=== PATIENT | male | born 1970 | race African-American/Black ===

== ENCOUNTER 2019-05-19 11:13 | Inpatient (IN) | payer OTHER ==
[2019-05-19 15:35] VITALS: BMI 23.1
--- NOTE | 2019-05-19 17:14 | HP ---
CIWA Score Nausea/Vomitin-No Nausea/No Vomiting Muscle Tremors: 3 Anxiety: 2 Agitation: 1-Slight > Activity Paroxysmal Sweats: 2 Orientation: 0-Oriented Tacttile Disturbances: 3-Moderate Itch/Numb/Burn Auditory Disturbances: 0-None Visual Disturbances: 0-None Headache: 1-Very Mild CIWA-Ar Total Score: 12 - Admission Criteria OASAS Guidelines: Admission for Medically Managed Detox: Requires at least one of the followin. CIWA greater than 12 2. Seizures within the past 24 hours 3. Delirium tremens within the past 24 hours 4. Hallucinations within the past 24 hours 5. Acute intervention needed for co occurring medical disorder 6. Acute intervention needed for co occurring psychiatric disorder 7. Severe withdrawal that cannot be handled at a lower level of care (continued vomiting, continued diarrhea, abnormal vital signs) requiring intravenous medication and/or fluids 8. Patient presents the following: CIWA greater than 12 Admission Criteria Met: Admission criteria met Admission ROS [facility] Chief Complaint: alcohol detox Allergies/Adverse Reactions: Allergies Allergy/AdvReac Type Severity Reaction Status Date / Time No Known Allergies Allergy Verified 05/19/19 15:28 History of Present Illness: Patient is a 48 yo AA, male, homeless, with hx of opioid, use disorder, alcohol use disorder and cocaine use disorder, is here seeking inpatient alcohol detox d/t withdrawal sx. patient currently on MAT Bup 8 mg TID but reports only takes it 8 mg qd. Patient denies hx of seizures or blackouts. Denies any significant medical hx . Patient reports recent relapse dx murder of his son two weeks ago, denies SI/HI at this time. Patient Name: Gabriel Busby Date: 1970 Address: [address] [place] [address] Sex: Male Rx Written Rx Dispensed Drug Quantity Days Supply Prescriber Name 05/03/2019 05/03/2019 buprenorphine-naloxone 8-2 mg sl film 21 7 Sierra Bowers 04/26/2019 04/26/2019 buprenorphine-naloxone 8-2 mg sl film 21 7 Sierra Bowers 04/19/2019 04/19/2019 buprenorphine-naloxone 8-2 mg sl tablet 21 7 Sierra Bowers 03/29/2019 03/29/2019 buprenorphine-naloxone 8-2 mg sl tablet 21 7 Sierra Bowers 02/24/2019 02/24/2019 buprenorphine-naloxone 8-2 mg sl film 30 15 José Argueta Patient Name: Gabriel Busby Date: 1970 Address: [place] [address] Sex: Male Rx Written Rx Dispensed Drug Quantity Days Supply Prescriber Name 01/05/2019 01/05/2019 chlordiazepoxide 25 mg capsule 24 6 Uday Liu) 07/07/2018 07/07/2018 buprenorphine-naloxone 8-2 mg sl tablet 28 13 Sandra Worthy NP Exam Limitations: No Limitations - Ebola screening Have you traveled outside of the country in the last 21 days: No Have you had contact with anyone from an Ebola affected area: No - Review of Systems Constitutional: Chills, Unintentional Wgt. Loss EENT: reports: Nose Congestion Respiratory: reports: No Symptoms reported Cardiac: reports: No Symptoms Reported GI: reports: Poor Appetite, Poor Fluid Intake : reports: No Symptoms Reported Musculoskeletal: reports: No Symptoms Reported Integumentary: reports: No Symptoms Reported Neuro: reports: No Symptoms reported Endocrine: reports: Increased Thirst Hematology: reports: No Symptoms Reported Psychiatric: reports: Orientated x3, Depressed Other Systems: Reviewed and Negative Patient History - Patient Medical History Hx Anemia: No Hx Asthma: No Hx Chronic Obstructive Pulmonary Disease (COPD): No Hx Cancer: No Hx Cardiac Disorders: No Hx Congestive Heart Failure: No Hx Hypertension: No Hx Hypercholesterolemia: No Hx Pacemaker: No HX Cerebrovascular Accident: No Hx Seizures: No Hx Dementia: No Hx Diabetes: No Hx Gastrointestinal Disorders: No Hx Liver Disease: No Hx Genitourinary Disorders: No Hx Sexually Transmitted Disorders: No Hx Renal Disease (ESRD): No Hx Thyroid Disease: No Hx Human Immunodeficiency Virus (HIV): No (Last tested negative February 2019) Hx Hepatitis C: No Hx Depression: No Hx Suicide Attempt: No (DENIES) Hx Bipolar Disorder: No Hx Schizophrenia: No - Patient Surgical History Past Surgical History: No Hx Neurologic Surgery: No Hx Cataract Extraction: No Hx Cardiac Surgery: No Hx Lung Surgery: No Hx Breast Surgery: No Hx Breast Biopsy: No Hx Abdominal Surgery: No Hx Appendectomy: No Hx Cholecystectomy: No Hx Genitourinary Surgery: No Hx Section: No Hx Orthopedic Surgery: No Anesthesia Reaction: No - PPD History Previous Implant?: No Documented Results: Negative w/proof Date: 06/09/14 Results: 0 MM PPD to be Administered?: Yes - Smoking Cessation Smoking history: Current every day smoker Have you smoked in the past 12 months: No Aproximately how many cigarettes per day: 0 Cigars Per Day: 0 Hx Chewing Tobacco Use: No Initiated information on smoking cessation: Yes 'Breaking Loose' booklet given: 05/19/19 - Substance & Tx. History Hx Alcohol Use: No Hx Substance Use: Yes Substance Use Type: Cocaine, Opiates Hx Substance Use Treatment: Yes (Detox and Rehab February [address] ) - Substances abused Alcohol Substance route: Oral Frequency: Daily Amount used: 2 pints of vodka Age of first use: 18 Date of last use: 05/18/19 Heroin Substance route: Inhalation Frequency: Daily Amount used: 22 bAGS Age of first use: 18 Date of last use: 05/18/19 Admission Physical Exam S - Vital Signs Vital Signs: Vital Signs - 24 hr 05/19/19 15:28 Temperature 97.3 F L Pulse Rate 72 Respiratory 20 Rate Blood Pressure 137/91 - Physical General Appearance: Yes: Disheveled (poor hygiene), Mild Distress, Thin, Tremorous, Sweating, Anxious HEENTM: Yes: EOMI, Hearing grossly Normal, Normal ENT Inspection, Normocephalic , Normal Voice, RISSA, Pharynx Normal, Tm's normal, Other (dry mucous membranes) Respiratory: Yes: Chest Non-Tender, Lungs Clear, Normal Breath Sounds, No Respiratory Distress, No Accessory Muscle Use Neck: Yes: Within Normal Limits Breast: Yes: Breast Exam Deferred Cardiology: Yes: Regular Rhythm, Regular Rate Abdominal: Yes: Normal Bowel Sounds, Non Tender, Flat, Soft Genitourinary: Yes: Within Normal Limits Back: Yes: Normal Inspection Musculoskeletal: Yes: full range of Motion, Gait Steady, Pelvis Stable, Back pain Extremities: Yes: Normal Capillary Refill, Normal Inspection, Normal Range of Motion, Non-Tender Neurological: Yes: employment office clerk II-XII NML intact, Fully Oriented, Alert, Motor Strength 5/5, Normal Response, Depressed Affect Integumentary: Yes: Normal Color, Dry, Warm Lymphatic: Yes: Within Normal Limits - Diagnostic (1) Alcohol dependence with uncomplicated withdrawal Current Visit: Yes Status: Acute (2) Weight decreased Current Visit: Yes Status: Active (3) Nicotine dependence Current Visit: Yes Status: Acute (4) Cocaine dependence, uncomplicated Current Visit: Yes Status: Acute (5) Opioid dependence on agonist therapy Current Visit: Yes Status: Chronic Cleared for Admission [facility] - Detox or Rehab [facility] Level of Care: Medically Managed Detox Regimen/Protocol: Librium Breathalyzer - Breathalyzer Breathalyzer: 0 Urine Drug Screen - Test Device Lot number: [id number] Expiration date: 01/20/21 - Control Is test valid?: Yes - Results Drug screen NEGATIVE: No Urine drug screen results: CLAIRE-Cocaine, MOP-Opiates, BUP-Suboxone Inpatient Rehab Admission - Rehab Decision to Admit Inpatient rehab admission?: No
[2019-05-19] MEDS ORDERED: METHOCARBAMOL 500 MG TABLET PO PRN (17:21)
[2019-05-19] MEDS ORDERED: chlordiazePOXIDE HCL 25 MG CAPSULE PO PRN (17:21)
[2019-05-19] MEDS ORDERED: MENTHOL/PHENOL 1 EACH UD MM PRN (17:21)
[2019-05-19] MEDS ORDERED: BISMUTH SUBSALICYLATE 524 MG/30 ML UD PO PRN (17:21)
[2019-05-19] MEDS ORDERED: hydrOXYzine PAMOATE 25 MG CAPSULE (FP) PO PRN (17:21)
[2019-05-19] MEDS ORDERED: ACETAMINOPHEN 325 MG TABLET (FP) PO PRN ×2 (17:21)
[2019-05-19] MEDS ORDERED: MAGNESIUM CITRATE 300 ML BOTTLE PO PRN (17:21)
[2019-05-19] MEDS ORDERED: MAGNESIUM HYDROX 2400MG/30ML ORAL SUSPENSION 30 ML CUP PO PRN (17:21)
[2019-05-19] MEDS ORDERED: IBUPROFEN 400 MG TABLET (FP) PO PRN (17:21)
[2019-05-19] MEDS ORDERED: MAG HYDROX/AL HYDROX/SIMETH 30 ML UNIT-DOSE CUP PO PRN (17:21)
[2019-05-19] MEDS ORDERED: MELATONIN 5 MG TABLETS PO PRN (17:21)
[2019-05-19] MEDS: BUPRENORPHINE/NALOXONE 8 MG/2 MG FILM PACKET SL SCH (18:24)
[2019-05-19] MEDS: chlordiazePOXIDE HCL 25 MG CAPSULE PO SCH (22:37)
[2019-05-19] MEDS: THIAMINE HCL 100 MG TABLET (FP) PO SCH (22:37)
[2019-05-20] MEDS: chlordiazePOXIDE HCL 25 MG CAPSULE PO SCH ×4 (06:07→22:56)
[2019-05-20] MEDS: PRENATAL VITAMINS W/ FOLIC ACID TABLET (FP) PO SCH (10:22)
[2019-05-20] MEDS: BUPRENORPHINE/NALOXONE 8 MG/2 MG FILM PACKET SL SCH (10:22)
[2019-05-20 10:28] LABS: ALBUMIN 2.9 g/dl (3.4-5.0); BILIRUBIN,TOTAL 0.3 mg/dL (0.2-1); BLOOD UREA NITROGEN 12.1 mg/dL (7-18); CALCIUM 8.7 mg/dL (8.5-10.1); CREATININE 0.9 mg/dL (0.55-1.3); HEMATOCRIT 39.8 % (35.4-49); HEMOGLOBIN 13.5 GM/dL (11.7-16.9); MCHC 33.8 g/dl (32.0-35.9); MEAN CELL VOLUME 91.8 fl (80-96); MEAN PLT VOLUME 8.9 fl (7.5-11.1); PLATELET COUNT 298 K/MM3 (134-434); POTASSIUM 3.9 mmol/L (3.5-5.1); RBC 4.34 M/mm3 (4.00-5.60); RDW 13.9 % (11.9-15.9); TOT PROT 6.1 g/dl (6.4-8.2); WHITE BLOOD COUNT 5.1 K/mm3 (4.0-10.0)
--- NOTE | 2019-05-20 17:25 | PN ---
S CIWA - CIWA Score Nausea/Vomitin-No Nausea/No Vomiting Muscle Tremors: 3 Anxiety: 3 Agitation: 2 Paroxysmal Sweats: 3 Orientation: 4Disoriented Place/Person Tacttile Disturbances: 0-None Auditory Disturbances: 0-None Visual Disturbances: 0-None Headache: 0-None Present CIWA-Ar Total Score: 15 BHS Progress Note (SOAP) Subjective: Tremors, Anxious, Sweating. Objective: PATIENT A & O X 1 (UNCERTAIN ABOUT CURRENT DAY / DATE AND ABOUT CURRENT LOCATION ). IN NO ACUTE DISTRESS. 05/20/19 17:24 Vital Signs Temperature 97.1 F L 05/20/19 17:16 Pulse Rate 79 05/20/19 17:16 Respiratory Rate 18 05/20/19 17:16 Blood Pressure 117/71 05/20/19 17:16 O2 Sat by Pulse Oximetry (%) Laboratory Tests 05/20/19 05/20/19 05/20/19 07:40 07:40 07:40 WBC 5.1 RBC 4.34 Hgb 13.5 Hct 39.8 MCV 91.8 MCH 31.0 MCHC 33.8 RDW 13.9 Plt Count 298 MPV 8.9 Sodium 143 Potassium 3.9 Chloride 108 H Carbon Dioxide 28 Anion Gap 7 L BUN 12.1 Creatinine 0.9 Est GFR (CKD-EPI)AfAm 115.83 Est GFR (CKD-EPI)NonAf 99.94 Random Glucose 86 Calcium 8.7 Total Bilirubin 0.3 AST 12 L ALT 13 Alkaline Phosphatase 72 Total Protein 6.1 L Albumin 2.9 L RPR Titer Nonreactive LABS NOTED. Assessment: 05/20/19 17:25 WITHDRAWAL SYMPTOMS. Plan: CONTINUE DETOX.
[2019-05-20] MEDS: THIAMINE HCL 100 MG TABLET (FP) PO SCH (22:56)
[2019-05-21] MEDS: chlordiazePOXIDE HCL 25 MG CAPSULE PO SCH ×4 (05:33→22:48)
[2019-05-21] MEDS: PRENATAL VITAMINS W/ FOLIC ACID TABLET (FP) PO SCH (10:19)
[2019-05-21] MEDS: BUPRENORPHINE/NALOXONE 8 MG/2 MG FILM PACKET SL SCH (10:19)
--- NOTE | 2019-05-21 12:23 | PN ---
[facility] CIWA - CIWA Score Nausea/Vomitin-Mild Nausea/No Vomiting Muscle Tremors: 4-Moderate,w/Arms Extend Anxiety: 3 Agitation: 2 Paroxysmal Sweats: 1-Minimal Palms Moist Orientation: 0-Oriented Tacttile Disturbances: 0-None Auditory Disturbances: 0-None Visual Disturbances: 0-None Headache: 1-Very Mild CIWA-Ar Total Score: 12 S Progress Note (SOAP) Subjective: doing well with librium detox regimen ate breakfast received suboxone today feeling better Objective: 05/21/19 12:22 Vital Signs Temperature 96.7 F L 05/21/19 09:48 Pulse Rate 83 05/21/19 09:48 Respiratory Rate 18 05/21/19 09:48 Blood Pressure 126/83 05/21/19 09:48 O2 Sat by Pulse Oximetry (%) Laboratory Last Values WBC 5.1 K/mm3 (4.0-10.0) 05/20/19 07:40 RBC 4.34 M/mm3 (4.00-5.60) 05/20/19 07:40 Hgb 13.5 GM/dL (11.7-16.9) 05/20/19 07:40 Hct 39.8 % (35.4-49) 05/20/19 07:40 MCV 91.8 fl (80-96) 05/20/19 07:40 MCH 31.0 pg (25.7-33.7) 05/20/19 07:40 MCHC 33.8 g/dl (32.0-35.9) 05/20/19 07:40 RDW 13.9 % (11.9-15.9) 05/20/19 07:40 Plt Count 298 K/MM3 (134-434) 05/20/19 07:40 MPV 8.9 fl (7.5-11.1) 05/20/19 07:40 Sodium 143 mmol/L (136-145) 05/20/19 07:40 Potassium 3.9 mmol/L (3.5-5.1) 05/20/19 07:40 Chloride 108 mmol/L (98-107) H 05/20/19 07:40 Carbon Dioxide 28 mmol/L (21-32) 05/20/19 07:40 Anion Gap 7 MMOL/L (8-16) L 05/20/19 07:40 BUN 12.1 mg/dL (7-18) 05/20/19 07:40 Creatinine 0.9 mg/dL (0.55-1.3) 05/20/19 07:40 Est GFR (CKD-EPI)AfAm 115.83 05/20/19 07:40 Est GFR (CKD-EPI)NonAf 99.94 05/20/19 07:40 Random Glucose 86 mg/dL (74-106) 05/20/19 07:40 Calcium 8.7 mg/dL (8.5-10.1) 05/20/19 07:40 Total Bilirubin 0.3 mg/dL (0.2-1) 05/20/19 07:40 AST 12 U/L (15-37) L 05/20/19 07:40 ALT 13 U/L (13-61) 05/20/19 07:40 Alkaline Phosphatase 72 U/L (45-117) 05/20/19 07:40 Total Protein 6.1 g/dl (6.4-8.2) L 05/20/19 07:40 Albumin 2.9 g/dl (3.4-5.0) L 05/20/19 07:40 RPR Titer Nonreactive (NONREACTIVE) 05/20/19 07:40 lab noted Assessment: 05/21/19 12:23 alcohol withdrawal sx Plan: continue librium detox regimen
[2019-05-21] MEDS: THIAMINE HCL 100 MG TABLET (FP) PO SCH (22:48)
[2019-05-22] MEDS ORDERED: chlordiazePOXIDE HCL 10 MG CAPSULE PO PRN
[2019-05-22] MEDS: chlordiazePOXIDE HCL 10 MG CAPSULE PO SCH ×4 (06:08→22:50)
[2019-05-22] MEDS: PRENATAL VITAMINS W/ FOLIC ACID TABLET (FP) PO SCH (10:12)
[2019-05-22] MEDS: BUPRENORPHINE/NALOXONE 8 MG/2 MG FILM PACKET SL SCH (10:12)
--- NOTE | 2019-05-22 11:45 | PN ---
[facility] CIWA - CIWA Score Nausea/Vomitin-No Nausea/No Vomiting Muscle Tremors: 2 Anxiety: 2 Agitation: 2 Paroxysmal Sweats: 1-Minimal Palms Moist Orientation: 0-Oriented Tacttile Disturbances: 1-Very Mild Itch/Numbness Auditory Disturbances: 0-None Visual Disturbances: 0-None Headache: 0-None Present CIWA-Ar Total Score: 8 S Progress Note (SOAP) Subjective: doing well with librium detox regimen ate breakfast tolerate food and fluid well received suboxone today Objective: 05/22/19 11:44 Vital Signs Temperature 96.1 F L 05/22/19 09:04 Pulse Rate 64 05/22/19 09:04 Respiratory Rate 18 05/22/19 09:04 Blood Pressure 107/68 05/22/19 09:04 O2 Sat by Pulse Oximetry (%) Laboratory Last Values WBC 5.1 K/mm3 (4.0-10.0) 05/20/19 07:40 RBC 4.34 M/mm3 (4.00-5.60) 05/20/19 07:40 Hgb 13.5 GM/dL (11.7-16.9) 05/20/19 07:40 Hct 39.8 % (35.4-49) 05/20/19 07:40 MCV 91.8 fl (80-96) 05/20/19 07:40 MCH 31.0 pg (25.7-33.7) 05/20/19 07:40 MCHC 33.8 g/dl (32.0-35.9) 05/20/19 07:40 RDW 13.9 % (11.9-15.9) 05/20/19 07:40 Plt Count 298 K/MM3 (134-434) 05/20/19 07:40 MPV 8.9 fl (7.5-11.1) 05/20/19 07:40 Sodium 143 mmol/L (136-145) 05/20/19 07:40 Potassium 3.9 mmol/L (3.5-5.1) 05/20/19 07:40 Chloride 108 mmol/L (98-107) H 05/20/19 07:40 Carbon Dioxide 28 mmol/L (21-32) 05/20/19 07:40 Anion Gap 7 MMOL/L (8-16) L 05/20/19 07:40 BUN 12.1 mg/dL (7-18) 05/20/19 07:40 Creatinine 0.9 mg/dL (0.55-1.3) 05/20/19 07:40 Est GFR (CKD-EPI)AfAm 115.83 05/20/19 07:40 Est GFR (CKD-EPI)NonAf 99.94 05/20/19 07:40 Random Glucose 86 mg/dL (74-106) 05/20/19 07:40 Calcium 8.7 mg/dL (8.5-10.1) 05/20/19 07:40 Total Bilirubin 0.3 mg/dL (0.2-1) 05/20/19 07:40 AST 12 U/L (15-37) L 05/20/19 07:40 ALT 13 U/L (13-61) 05/20/19 07:40 Alkaline Phosphatase 72 U/L (45-117) 05/20/19 07:40 Total Protein 6.1 g/dl (6.4-8.2) L 05/20/19 07:40 Albumin 2.9 g/dl (3.4-5.0) L 05/20/19 07:40 RPR Titer Nonreactive (NONREACTIVE) 05/20/19 07:40 lab noted Assessment: 05/22/19 11:44 alcohol withdrawal sx Plan: continue librium detox regimen
--- NOTE | 2019-05-22 13:28 | EKG ---
Test Reason : Blood Pressure : / mmHG Vent. Rate : 065 BPM Atrial Rate : 065 BPM P-R Int : 170 ms QRS Dur : 084 ms QT Int : 440 ms P-R-T Axes : 060 070 069 degrees QTc Int : 457 ms NORMAL SINUS RHYTHM NORMAL ECG NO PREVIOUS ECGS AVAILABLE Confirmed by CLEMENTE LEE MD ([id number]) on 05/22/2019 1:27:27 PM Referred By: Confirmed By:CLEMENTE LEE MD
[2019-05-22] MEDS: THIAMINE HCL 100 MG TABLET (FP) PO SCH (22:51)
[2019-05-23] MEDS: chlordiazePOXIDE HCL 10 MG CAPSULE PO SCH ×2 (07:45→17:30)
[2019-05-23] MEDS: BUPRENORPHINE/NALOXONE 8 MG/2 MG FILM PACKET SL SCH (10:11)
[2019-05-23] MEDS: PRENATAL VITAMINS W/ FOLIC ACID TABLET (FP) PO SCH (10:12)
--- NOTE | 2019-05-23 16:24 | PN ---
S CIWA - CIWA Score Nausea/Vomitin-No Nausea/No Vomiting Muscle Tremors: None Anxiety: 2 Agitation: 1-Slight > Activity Paroxysmal Sweats: 3 Orientation: 2-Disoriented Date<2 days Tacttile Disturbances: 0-None Auditory Disturbances: 0-None Visual Disturbances: 0-None Headache: 0-None Present CIWA-Ar Total Score: 8 BHS Progress Note (SOAP) Subjective: Sweating, Fatigue. Objective: PATIENT A & O X 2 (UNCERTAIN ABOUT CURRENT DAY / DATE). IN NO ACUTE DISTRESS. 05/23/19 16:23 Vital Signs Temperature 97.3 F L 05/23/19 06:18 Pulse Rate 64 05/23/19 06:18 Respiratory Rate 18 05/23/19 06:18 Blood Pressure 112/68 05/23/19 06:18 O2 Sat by Pulse Oximetry (%) Laboratory Tests 05/20/19 05/20/19 05/20/19 07:40 07:40 07:40 WBC 5.1 RBC 4.34 Hgb 13.5 Hct 39.8 MCV 91.8 MCH 31.0 MCHC 33.8 RDW 13.9 Plt Count 298 MPV 8.9 Sodium 143 Potassium 3.9 Chloride 108 H Carbon Dioxide 28 Anion Gap 7 L BUN 12.1 Creatinine 0.9 Est GFR (CKD-EPI)AfAm 115.83 Est GFR (CKD-EPI)NonAf 99.94 Random Glucose 86 Calcium 8.7 Total Bilirubin 0.3 AST 12 L ALT 13 Alkaline Phosphatase 72 Total Protein 6.1 L Albumin 2.9 L RPR Titer Nonreactive LABS NOTED. Assessment: 05/23/19 16:23 WITHDRAWAL SYMPTOMS. Plan: CONTINUE DETOX. PATIENT SCHEDULED FOR D/C FROM DETOX UNIT TOMORROW.
[2019-05-23 17:18] VITALS: BP 113/74; PULSE 90; TEMP 97.6
[2019-05-23] MEDS: THIAMINE HCL 100 MG TABLET (FP) PO SCH (23:50)
[2019-05-24] MEDS ORDERED: chlordiazePOXIDE HCL 10 MG CAPSULE PO ONE (05:00)
[2019-05-24] MEDS: PRENATAL VITAMINS W/ FOLIC ACID TABLET (FP) PO SCH (09:21)
[2019-05-24] MEDS: BUPRENORPHINE/NALOXONE 8 MG/2 MG FILM PACKET SL SCH (09:21)
--- NOTE | 2019-05-24 21:42 | DS ---
[facility] Detox Discharge Summary Admission Date: 05/19/19 Discharge Date: 05/24/19 - History Present History: Alcohol Dependence, Cocaine Dependence, Opioid Dependence Additional Comments: PATIENT GOING TO [address] ([place], [place]) FOR AFTERCARE. PATIENT WAS DISCHARGED FROM DETOX UNIT IN STABLE MEDICAL CONDITION. Pertinent Past History: Weight Decreased, Nicotine Dependence, History of MAT / Suboxone Maintenance Therapy. - Physical Exam Results Vital Signs: Vital Signs Temperature 97.6 F 05/23/19 17:17 Pulse Rate 90 05/23/19 17:17 Respiratory Rate 18 05/23/19 17:17 Blood Pressure 113/74 05/23/19 17:17 O2 Sat by Pulse Oximetry (%) Pertinent Admission Physical Exam Findings: WITHDRAWAL SYMPTOMS. Laboratory Tests 05/20/19 05/20/19 05/20/19 07:40 07:40 07:40 WBC 5.1 RBC 4.34 Hgb 13.5 Hct 39.8 MCV 91.8 MCH 31.0 MCHC 33.8 RDW 13.9 Plt Count 298 MPV 8.9 Sodium 143 Potassium 3.9 Chloride 108 H Carbon Dioxide 28 Anion Gap 7 L BUN 12.1 Creatinine 0.9 Est GFR (CKD-EPI)AfAm 115.83 Est GFR (CKD-EPI)NonAf 99.94 Random Glucose 86 Calcium 8.7 Total Bilirubin 0.3 AST 12 L ALT 13 Alkaline Phosphatase 72 Total Protein 6.1 L Albumin 2.9 L RPR Titer Nonreactive LABS NOTED. - Treatment Hospital Course: Detox Protocol Followed, Detoxed Safely, Responded well, Discharged Condition Good, Rehab Referral Accepted Patient has Accepted a Rehab Referral to: [address] ([place], [place]). - Medication Discharge Medications: Ambulatory Orders Buprenorphine/Naloxone [Suboxone 8Mg/2Mg Sl Film -] 1 each SL DAILY 05/19/19 - Diagnosis (1) Weight decreased Status: Active (2) Alcohol dependence with uncomplicated withdrawal Status: Acute (3) Cocaine dependence, uncomplicated Status: Acute (4) Nicotine dependence Status: Acute (5) Opioid dependence on agonist therapy Status: Chronic - AMA Did Patient Leave Against Medical Advice: No CIWA Score Nausea/Vomitin-No Nausea/No Vomiting Muscle Tremors: None Anxiety: 2 Agitation: 1-Slight > Activity Paroxysmal Sweats: No Perspiration Orientation: 0-Oriented Tacttile Disturbances: 0-None Auditory Disturbances: 0-None Visual Disturbances: 0-None Headache: 0-None Present CIWA-Ar Total Score: 3 - Admission Criteria OASAS Guidelines: Admission for Medically Managed Detox: Requires at least one of the followin. CIWA greater than 12 2. Seizures within the past 24 hours 3. Delirium tremens within the past 24 hours 4. Hallucinations within the past 24 hours 5. Acute intervention needed for co occurring medical disorder 6. Acute intervention needed for co occurring psychiatric disorder 7. Severe withdrawal that cannot be handled at a lower level of care (continued vomiting, continued diarrhea, abnormal vital signs) requiring intravenous medication and/or fluids 8.
== END 2019-05-24 09:20 | disposition home or self-care (01) | DRG 773 ==
LOC: YASAS 11:13 → Y3N 17:36
PROVIDERS: ADMIT Surgery; ATTEND Surgery
PROC: HZ2ZZZZ Detoxification Services for Substance Abuse Treatment (ICD-10-PCS; principal; 2019-05-19)
DX: F10.230 Alcohol dependence with withdrawal, uncomplicated (principal); F11.20 Opioid dependence, uncomplicated; F14.20 Cocaine dependence, uncomplicated; F17.210 Nicotine dependence, cigarettes, uncomplicated; R63.4 Abnormal weight loss; Z59.0 Homelessness
CPT/HCPCS: 36415; 80053; 85027; 86593; 93005; 93010

== ENCOUNTER 2019-10-05 12:11 | Inpatient (IN) | payer OTHER ==
--- NOTE | 2019-10-05 13:26 | BHS.RME ---
Substance Use & Tx History - Substance Use History Alcohol Substance amount: 4-5 pints vodka Frequency of use: Daily Substance route: Oral Date of Last Use: 10/04/19 Opiates (Heroin) Substance amount: 1 bundle Frequency of use: Daily Substance route: Inhalation (ex: sniffing or snorting) Physical/Psych/Mental Status - Behavior General Behavior: Increased activity (restlessness, agitation) - Cooperativeness Cooperativeness: Cooperative - Thinking Thought Processes: Tight, Logical, Goal Directed Thought content: Future oriented - Physical Health Problems Is patient presently having any pain?: No Does patient presently have any injuries (include location): No Does patient currently have a fever: No Is patient : No COWS - Scale Resting Pulse: 0= [place] 80 or Below Sweatin=Flushed/Facial Moisture Restless Observation: 1= Difficult to Sit Still Pupil Size: 1= Pupils >than Normal Bone or Joint Aches: 2= Severe Diffuse Aches Runny Nose/ Eye Tearin= Nasal Congestion GI Upset > 30mins: 1= Stomach Cramp Tremor Observation: 1= Tremor [place], Not Seen Yawning Observation: 1= 1-2x During Session Anxiety or Irritability: 1=Feels Anxious/Irritable Goose Flesh Skin: 3=Piloerection COWS Score: 14 CIWA Nausea/Vomitin Muscle Tremors: 3 Anxiety: 4-Mod. Anxious/Guarded Paroxysmal Sweats: 4-Forehead w/Sweat Beads Orientation: 1-Uncertain about Date Tacttile Disturbances: 0-None Auditory Disturbances: 0-None Visual Disturbances: 0-None Headache: 0-None Present
--- NOTE | 2019-10-05 13:56 | HP ---
COWS - Scale Resting Pulse: 0= [place] 80 or Below Sweatin=Flushed/Facial Moisture Restless Observation: 1= Difficult to Sit Still Pupil Size: 1= Pupils >than Normal Bone or Joint Aches: 2= Severe Diffuse Aches Runny Nose/ Eye Tearin= Nasal Congestion GI Upset > 30mins: 1= Stomach Cramp Tremor Observation: 1= Tremor [place], Not Seen Yawning Observation: 1= 1-2x During Session Anxiety or Irritability: 1=Feels Anxious/Irritable Goose Flesh Skin: 3=Piloerection COWS Score: 14 CIWA Score Nausea/Vomitin Muscle Tremors: 3 Anxiety: 4-Mod. Anxious/Guarded Agitation: 0-Normal Activity Paroxysmal Sweats: 4-Forehead w/Sweat Beads Orientation: 1-Uncertain about Date Tacttile Disturbances: 0-None Auditory Disturbances: 0-None Visual Disturbances: 0-None Headache: 0-None Present CIWA-Ar Total Score: 15 - Admission Criteria OASAS Guidelines: Admission for Medically Managed Detox: Requires at least one of the followin. CIWA greater than 12 2. Seizures within the past 24 hours 3. Delirium tremens within the past 24 hours 4. Hallucinations within the past 24 hours 5. Acute intervention needed for co occurring medical disorder 6. Acute intervention needed for co occurring psychiatric disorder 7. Severe withdrawal that cannot be handled at a lower level of care (continued vomiting, continued diarrhea, abnormal vital signs) requiring intravenous medication and/or fluids 8. Admitting History and Physical - Admission Chief Complaint: Mr. Busby is a 49 yo gentleman who presents to [facility] requesting detox from alcohol and heroin. History of Present Illness: Mr. Busby is a 49 yo gentleman who presents to [facility] requesting detox from alcohol and heroin. He has been here almost annually for the past 8 years. His last admission was in April of 2019. At that time he completed detox. However he returned to the street and relapsed within 2 days. PMH: none PSH: never Psych: none Substance use hx Alcohol, first use at the age of 19, 2 pints of Vodka dialy, last use yesterday , no blacouts or seizues heroin; first use at the age of 19, last use yesterday, 14-20 bags per day, snort, OD 3 months ago cocaine: first use at the age of 19y, last use one week ago, $20/ day, sniff Cigs: 5 per day Denies use of methadone or benzos History Source: Patient Limitations to Obtaining History: No Limitations - Smoking History Smoking history: Current every day smoker Have you smoked in the past 12 months: No Aproximately how many cigarettes per day: 0 - Alcohol/Substance Use Hx Alcohol Use: No History of Substance Use: reports: Cocaine, Heroin - Social History Usual Living Arrangement: Yes: Other (homeless, not in intermediate) Admission [facility] Allergies/Adverse Reactions: Allergies Allergy/AdvReac Type Severity Reaction Status Date / Time No Known Allergies Allergy Verified 05/19/19 15:28 Exam Limitations: No Limitations - Ebola screening Have you traveled outside of the country in the last 21 days: No Have you had contact with anyone from an Ebola affected area: No Have you been sick,other than usual withdrawal symptoms: No Do you have a fever: No - Review of Systems Constitutional: No Symptoms Reported EENT: reports: No Symptoms Reported Respiratory: reports: No Symptoms reported Cardiac: reports: No Symptoms Reported GI: reports: Nausea : reports: No Symptoms Reported Musculoskeletal: reports: Back Pain, Joint Pain, Muscle Pain Integumentary: reports: No Symptoms Reported Neuro: reports: No Symptoms reported Endocrine: reports: No Symptoms Reported Hematology: reports: No Symptoms Reported Psychiatric: reports: No Sypmtoms Reported Patient History - Patient Medical History Hx Anemia: No Hx Asthma: No Hx Chronic Obstructive Pulmonary Disease (COPD): No Hx Cancer: No Hx Cardiac Disorders: No Hx Congestive Heart Failure: No Hx Hypertension: No Hx Hypercholesterolemia: No Hx Pacemaker: No HX Cerebrovascular Accident: No Hx Seizures: No Hx Dementia: No Hx Diabetes: No Hx Gastrointestinal Disorders: No Hx Liver Disease: No Hx Genitourinary Disorders: No Hx Sexually Transmitted Disorders: No Hx Renal Disease (ESRD): No Hx Thyroid Disease: No Hx Human Immunodeficiency Virus (HIV): No (Last tested negative February 2019) Hx Hepatitis C: No Hx Depression: No Hx Suicide Attempt: No (DENIES) Hx Bipolar Disorder: No Hx Schizophrenia: No - Patient Surgical History Past Surgical History: No Hx Neurologic Surgery: No Hx Cataract Extraction: No Hx Cardiac Surgery: No Hx Lung Surgery: No Hx Breast Surgery: No Hx Breast Biopsy: No Hx Abdominal Surgery: No Hx Appendectomy: No Hx Cholecystectomy: No Hx Genitourinary Surgery: No Hx Section: No Hx Orthopedic Surgery: No Anesthesia Reaction: No - PPD History Date: 05/21/19 Results: 0 MM - Smoking Cessation Smoking history: Current every day smoker Have you smoked in the past 12 months: No Aproximately how many cigarettes per day: 5 Cigars Per Day: 0 Hx Chewing Tobacco Use: No Initiated information on smoking cessation: Yes 'Breaking Loose' booklet given: 10/05/19 - Substances abused Alcohol Substance route: Oral Frequency: Daily Amount used: 2 pints Age of first use: 19 Date of last use: 10/04/19 Heroin Substance route: Inhalation Frequency: Daily Amount used: 15-20 bags Age of first use: 19 Date of last use: 10/04/19 Cocaine Substance route: Inhalation Frequency: 1-2 times per week Amount used: $20 Age of first use: 19 Date of last use: 09/28/19 Admission Physical Exam [facility] - Physical General Appearance: Yes: Thin HEENTM: Yes: Hearing grossly Normal, Normocephalic, Normal Voice Respiratory: Yes: Lungs Clear, Normal Breath Sounds Neck: Yes: Within Normal Limits Breast: Yes: Breast Exam Deferred Cardiology: Yes: Regular Rate, S1, S2 Abdominal: Yes: Non Tender, Flat, Soft, Increased Bowel Sounds Genitourinary: Yes: Other (deferred) Back: Yes: Normal Inspection Musculoskeletal: Yes: Within Normal Limits Extremities: Yes: Within Normal Limits Neurological: Yes: Alert, Normal Mood/Affect Integumentary: Yes: Within Normal Limits Lymphatic: Yes: Within Normal Limits - Diagnostic (1) Opioid abuse Current Visit: Yes Status: Acute (2) Alcohol dependence with uncomplicated withdrawal Current Visit: Yes Status: Acute (3) Cocaine abuse Current Visit: Yes Status: Chronic (4) Nicotine dependence Current Visit: Yes Status: Acute Cleared for Admission S - Detox or Rehab [facility] Level of Care: Medically Managed Breathalyzer - Breathalyzer Breathalyzer: 0 Urine Drug Screen - Test Device Lot number: [id number] Expiration date: 07/17/21 - Control Is test valid?: Yes - Results Drug screen NEGATIVE: No Urine drug screen results: CLAIRE-Cocaine, FEN-Fentanyl, MOP-Opiates, MTD-Methadone Inpatient Rehab Admission - Rehab Decision to Admit Inpatient rehab admission?: No
[2019-10-05] MEDS ORDERED: chlordiazePOXIDE HCL 25 MG CAPSULE PO PRN (14:02)
[2019-10-05] MEDS ORDERED: IBUPROFEN 400 MG TABLET (FP) PO PRN (14:02)
[2019-10-05] MEDS ORDERED: MAGNESIUM CITRATE 300 ML BOTTLE PO PRN (14:02)
[2019-10-05] MEDS ORDERED: MELATONIN 5 MG TABLETS PO PRN (14:02)
[2019-10-05] MEDS ORDERED: MENTHOL/PHENOL 1 EACH UD MM PRN (14:02)
[2019-10-05] MEDS ORDERED: MAG HYDROX/AL HYDROX/SIMETH 30 ML UNIT-DOSE CUP PO PRN (14:02)
[2019-10-05] MEDS ORDERED: BISMUTH SUBSALICYLATE 524 MG/30 ML UD PO PRN (14:02)
[2019-10-05] MEDS ORDERED: cloNIDine HCL 0.1 MG TABLET PO PRN (14:02)
[2019-10-05] MEDS ORDERED: METHOCARBAMOL 500 MG TABLET PO PRN (14:02)
[2019-10-05] MEDS ORDERED: MAGNESIUM HYDROX 2400MG/30ML ORAL SUSPENSION 30 ML CUP PO PRN (14:02)
[2019-10-05] MEDS ORDERED: ACETAMINOPHEN 325 MG TABLET (FP) PO PRN ×2 (14:02)
[2019-10-05] MEDS ORDERED: hydrOXYzine PAMOATE 25 MG CAPSULE (FP) PO PRN (14:02)
[2019-10-05 14:34] VITALS: BMI 22.3
[2019-10-05] MEDS ORDERED: METHADONE HCL 10 MG TABLET (FOR DETOX USE ONLY) PO ONE (15:30)
[2019-10-05] MEDS: NICOTINE 14 MG/24 HOURS TOPICAL PATCH TD SCH (15:45)
[2019-10-05 17:25] LABS: HEMATOCRIT 43.1 % (35.4-49); HEMOGLOBIN 14.5 GM/dL (11.7-16.9); MCH 31.4 pg (25.7-33.7); MCHC 33.5 g/dl (32.0-35.9); MEAN CELL VOLUME 93.6 fl (80-96); MEAN PLT VOLUME 9.1 fl (7.5-11.1); PLATELET COUNT 296 K/MM3 (134-434); RBC 4.61 M/mm3 (4.00-5.60); RDW 14.3 % (11.9-15.9); WHITE BLOOD COUNT 4.7 K/mm3 (4.0-10.0)
[2019-10-05 17:39] LABS: BLOOD UREA NITROGEN 14.7 mg/dL (7-18)
[2019-10-05 17:40] LABS: ALBUMIN 3.7 g/dl (3.4-5.0); BILIRUBIN,TOTAL 0.4 mg/dL (0.2-1); CALCIUM 9.3 mg/dL (8.5-10.1); POTASSIUM 4.3 mmol/L (3.5-5.1); TOT PROT 7.7 g/dl (6.4-8.2)
[2019-10-05] MEDS: chlordiazePOXIDE HCL 25 MG CAPSULE PO SCH ×2 (17:50→23:17)
[2019-10-05] MEDS: THIAMINE HCL 100 MG TABLET (FP) PO SCH (23:17)
[2019-10-06] MEDS: chlordiazePOXIDE HCL 25 MG CAPSULE PO SCH ×4 (06:24→23:45)
[2019-10-06] MEDS ORDERED: METHADONE HCL 10 MG TABLET (FOR DETOX USE ONLY) ONE (09:00)
[2019-10-06] MEDS ORDERED: METHADONE HCL 5 MG TABLET (FOR DETOX USE ONLY) ONE (09:00)
[2019-10-06] MEDS ORDERED: METHADONE (DETOX) 20 MG, METHADONE (DETOX) 5 MG PO ONE (10:00)
[2019-10-06] MEDS: NICOTINE 14 MG/24 HOURS TOPICAL PATCH TD SCH (10:30)
[2019-10-06] MEDS: PRENATAL VITAMINS W/ FOLIC ACID TABLET (FP) PO SCH (10:30)
--- NOTE | 2019-10-06 13:48 | PN ---
[facility] CIWA - CIWA Score Nausea/Vomitin-Mild Nausea/No Vomiting Muscle Tremors: 2 Anxiety: 2 Agitation: 2 Paroxysmal Sweats: No Perspiration Orientation: 0-Oriented Tacttile Disturbances: 1-Very Mild Itch/Numbness Auditory Disturbances: 0-None Visual Disturbances: 0-None Headache: 2-Mild CIWA-Ar Total Score: 10 BHS COWS - Scale Resting Pulse: 1= [place] 81-100 Sweatin= Chills/Flushing Restless Observation: 1= Difficult to Sit Still Pupil Size: 1= Pupils >than Normal Bone or Joint Aches: 1= Mild Discomfort Runny Nose/ Eye Tearin= Nasal Congestion GI Upset > 30mins: 1= Stomach Cramp Tremor Observation of Outstretched Hands: 1= Tremor [place], Not Seen Yawning Observation: 0= None Anxiety or Irritability: 2=Irritable/Anxious Goose Flesh Skin: 0=Smooth Skin COWS Score: 10 BHS Progress Note (SOAP) Subjective: alert,irritable,anxious,interrupted sleep,pain in the body and back Objective: 10/06/19 13:47 Laboratory Last Values WBC 4.7 K/mm3 (4.0-10.0) 10/05/19 14:35 RBC 4.61 M/mm3 (4.00-5.60) 10/05/19 14:35 Hgb 14.5 GM/dL (11.7-16.9) 10/05/19 14:35 Hct 43.1 % (35.4-49) 10/05/19 14:35 MCV 93.6 fl (80-96) 10/05/19 14:35 MCH 31.4 pg (25.7-33.7) 10/05/19 14:35 MCHC 33.5 g/dl (32.0-35.9) 10/05/19 14:35 RDW 14.3 % (11.9-15.9) 10/05/19 14:35 Plt Count 296 K/MM3 (134-434) 10/05/19 14:35 MPV 9.1 fl (7.5-11.1) 10/05/19 14:35 Sodium 139 mmol/L (136-145) 10/05/19 14:35 Potassium 4.3 mmol/L (3.5-5.1) 10/05/19 14:35 Chloride 104 mmol/L (98-107) 10/05/19 14:35 Carbon Dioxide 30 mmol/L (21-32) 10/05/19 14:35 Anion Gap 5 MMOL/L (8-16) L 10/05/19 14:35 BUN 14.7 mg/dL (7-18) 10/05/19 14:35 Creatinine 1.0 mg/dL (0.55-1.3) 10/05/19 14:35 Est GFR (CKD-EPI)AfAm 101.26 10/05/19 14:35 Est GFR (CKD-EPI)NonAf 87.37 10/05/19 14:35 Random Glucose 69 mg/dL (74-106) L 10/05/19 14:35 Calcium 9.3 mg/dL (8.5-10.1) 10/05/19 14:35 Total Bilirubin 0.4 mg/dL (0.2-1) 10/05/19 14:35 AST 23 U/L (15-37) 10/05/19 14:35 ALT 19 U/L (13-61) 10/05/19 14:35 Alkaline Phosphatase 97 U/L (45-117) 10/05/19 14:35 Total Protein 7.7 g/dl (6.4-8.2) 10/05/19 14:35 Albumin 3.7 g/dl (3.4-5.0) 10/05/19 14:35 RPR Titer Nonreactive (NONREACTIVE) 10/05/19 14:35 10/06/19 13:47 Vital Signs Temperature 96.8 F L 10/06/19 10:30 Pulse Rate 91 H 10/06/19 10:30 Respiratory Rate 20 10/06/19 10:30 Blood Pressure 117/65 10/06/19 10:30 O2 Sat by Pulse Oximetry (%) Assessment: 10/06/19 13:47 withdrawal symptom Plan: continue detox methadone and librium regimen
[2019-10-06] MEDS: THIAMINE HCL 100 MG TABLET (FP) PO SCH (23:45)
[2019-10-07] MEDS: chlordiazePOXIDE HCL 25 MG CAPSULE PO SCH ×2 (07:10→11:21)
[2019-10-07] MEDS ORDERED: METHADONE HCL 10 MG TABLET (FOR DETOX USE ONLY) PO ONE (10:00)
[2019-10-07] MEDS: NICOTINE 14 MG/24 HOURS TOPICAL PATCH TD SCH (11:21)
[2019-10-07] MEDS: PRENATAL VITAMINS W/ FOLIC ACID TABLET (FP) PO SCH (11:24)
--- NOTE | 2019-10-07 12:51 | PN ---
[facility] CIWA - CIWA Score Nausea/Vomitin-Mild Nausea/No Vomiting Muscle Tremors: 2 Anxiety: 1-Mildly Anxious Agitation: 1-Slight > Activity Paroxysmal Sweats: 1-Minimal Palms Moist Orientation: 0-Oriented Tacttile Disturbances: 0-None Auditory Disturbances: 0-None Visual Disturbances: 0-None Headache: 0-None Present CIWA-Ar Total Score: 6 S COWS - Scale Resting Pulse: 1= [place] 81-100 Sweatin= No chills or Flushing Restless Observation: 1= Difficult to Sit Still Pupil Size: 0= Normal to Room Light Bone or Joint Aches: 1= Mild Discomfort Runny Nose/ Eye Tearin= Nasal Congestion GI Upset > 30mins: 1= Stomach Cramp Tremor Observation of Outstretched Hands: 1= Tremor [place], Not Seen Yawning Observation: 0= None Anxiety or Irritability: 1=Feels Anxious/Irritable Goose Flesh Skin: 0=Smooth Skin COWS Score: 7 S Progress Note (SOAP) Subjective: pt states he is fine today. On dual detox protocols O: Vital Signs - 24 hr 10/06/19 10/06/19 10/06/19 14:58 17:42 23:06 Temperature 96.8 F L 97.9 F 96.3 F L Pulse Rate 90 70 85 Respiratory 16 17 18 Rate Blood Pressure 110/74 122/70 108/76 10/07/19 10/07/19 10/07/19 00:47 04:25 06:30 Temperature 97.5 F L Pulse Rate 63 Respiratory 16 16 18 Rate Blood Pressure 122/63 10/07/19 10:11 Temperature 97.7 F Pulse Rate 75 Respiratory 17 Rate Blood Pressure 115/78 Laboratory Tests 10/05/19 10/05/19 10/05/19 14:35 14:35 14:35 WBC 4.7 RBC 4.61 Hgb 14.5 Hct 43.1 MCV 93.6 MCH 31.4 MCHC 33.5 RDW 14.3 Plt Count 296 MPV 9.1 Sodium 139 Potassium 4.3 Chloride 104 Carbon Dioxide 30 Anion Gap 5 L BUN 14.7 Creatinine 1.0 Est GFR (CKD-EPI)AfAm 101.26 Est GFR (CKD-EPI)NonAf 87.37 Random Glucose 69 L Calcium 9.3 Total Bilirubin 0.4 AST 23 ALT 19 Alkaline Phosphatase 97 Total Protein 7.7 Albumin 3.7 RPR Titer Nonreactive a/p: AUD/OUD- continue detox protocols- pt doing well
[2019-10-07 16:41] VITALS: BP 143/83; PULSE 86; TEMP 98.2
--- NOTE | 2019-10-07 18:20 | DS ---
[facility] Detox Discharge Summary Admission Date: 10/05/19 Discharge Date: 10/07/19 - History Present History: Alcohol Dependence, Opioid Dependence Pertinent Past History: pt admitted 3 days ago for dual detox- alcohol and opioids. Pt left before being seen by this provider. Pt left AMA. Vital Signs - 24 hr 10/06/19 10/07/19 10/07/19 23:06 00:47 04:25 Temperature 96.3 F L Pulse Rate 85 Respiratory 18 16 16 Rate Blood Pressure 108/76 10/07/19 10/07/19 10/07/19 06:30 10:11 14:00 Temperature 97.5 F L 97.7 F 98.2 F Pulse Rate 63 75 86 Respiratory 18 17 17 Rate Blood Pressure 122/63 115/78 143/83 Laboratory Tests 10/05/19 10/05/19 10/05/19 14:35 14:35 14:35 WBC 4.7 RBC 4.61 Hgb 14.5 Hct 43.1 MCV 93.6 MCH 31.4 MCHC 33.5 RDW 14.3 Plt Count 296 MPV 9.1 Sodium 139 Potassium 4.3 Chloride 104 Carbon Dioxide 30 Anion Gap 5 L BUN 14.7 Creatinine 1.0 Est GFR (CKD-EPI)AfAm 101.26 Est GFR (CKD-EPI)NonAf 87.37 Random Glucose 69 L Calcium 9.3 Total Bilirubin 0.4 AST 23 ALT 19 Alkaline Phosphatase 97 Total Protein 7.7 Albumin 3.7 RPR Titer Nonreactive - Physical Exam Results Vital Signs: Vital Signs Temperature 98.2 F 10/07/19 14:00 Pulse Rate 86 10/07/19 14:00 Respiratory Rate 17 10/07/19 14:00 Blood Pressure 143/83 10/07/19 14:00 O2 Sat by Pulse Oximetry (%) - Treatment Hospital Course: Detox Protocol Followed
[2019-10-08] MEDS ORDERED: chlordiazePOXIDE HCL 10 MG CAPSULE PO PRN
[2019-10-08] MEDS ORDERED: chlordiazePOXIDE HCL 10 MG CAPSULE PO SCH (05:00)
[2019-10-08] MEDS ORDERED: METHADONE (DETOX) 10 MG, METHADONE (DETOX) 5 MG PO ONE (10:00)
[2019-10-09] MEDS ORDERED: chlordiazePOXIDE HCL 10 MG CAPSULE PO SCH (05:00)
[2019-10-09] MEDS ORDERED: METHADONE HCL 10 MG TABLET (FOR DETOX USE ONLY) PO ONE (10:00)
[2019-10-10] MEDS ORDERED: chlordiazePOXIDE HCL 10 MG CAPSULE PO ONE (05:00)
[2019-10-10] MEDS ORDERED: METHADONE HCL 5 MG TABLET (FOR DETOX USE ONLY) PO ONE (06:00)
== END 2019-10-07 18:01 | disposition left against medical advice (07) | DRG 770 ==
LOC: YASAS 12:11 → Y6N 15:16
PROVIDERS: ADMIT Allergy & Immunology; ATTEND Allergy & Immunology
PROC: HZ2ZZZZ Detoxification Services for Substance Abuse Treatment (ICD-10-PCS; principal; 2019-10-05)
DX: F10.230 Alcohol dependence with withdrawal, uncomplicated (principal); F11.23 Opioid dependence with withdrawal; F14.10 Cocaine abuse, uncomplicated; F17.210 Nicotine dependence, cigarettes, uncomplicated; Z59.0 Homelessness
CPT/HCPCS: 36415; 80053; 85027; 86593

== ENCOUNTER 2022-08-28 11:07 | Inpatient (IN) | payer OTHER ==
[2022-08-28 11:53] VITALS: BMI 23.3
[2022-08-28] MEDS ORDERED: BISMUTH SUBSALICYLATE 262 MG/15 ML BTL PO PRN (12:33)
[2022-08-28] MEDS ORDERED: LOPERAMIDE HCL 2 MG CAPSULE PO PRN (12:33)
[2022-08-28] MEDS ORDERED: MAGNESIUM HYDROX 2400MG/30ML ORAL SUSPENSION 30 ML CUP PO PRN (12:33)
[2022-08-28] MEDS ORDERED: METHOCARBAMOL 500 MG TABLET PO PRN (12:33)
[2022-08-28] MEDS ORDERED: NALOXONE HCL (KLOXXADO) 8 MG SPRAY NS PRN (12:33)
[2022-08-28] MEDS ORDERED: ONDANSETRON *ODT* 4 MG TABLET SL PRN (12:33)
[2022-08-28] MEDS ORDERED: cloNIDine HCL 0.1 MG TABLET PO PRN (12:33)
[2022-08-28] MEDS ORDERED: hydrOXYzine PAMOATE 25 MG CAPSULE (FP) PO PRN (12:33)
[2022-08-28] MEDS ORDERED: IBUPROFEN 400 MG TABLET (FP) PO PRN (12:33)
[2022-08-28] MEDS ORDERED: chlordiazePOXIDE HCL 25 MG CAPSULE PO PRN (12:33)
[2022-08-28] MEDS ORDERED: IBUPROFEN 600 MG TABLET (FP) PO PRN (12:33)
[2022-08-28] MEDS ORDERED: NICOTINE 10 MG CARTRIDGE (INHALER) IH PRN (12:33)
[2022-08-28] MEDS ORDERED: ACETAMINOPHEN 325 MG TABLET (FP) PO PRN ×2 (12:33)
[2022-08-28] MEDS ORDERED: methaDONE HCL 10 MG TABLET (FOR DETOX USE ONLY) PO ONE ×2 (12:33→17:00)
[2022-08-28] MEDS ORDERED: MAG HYDROX/AL HYDROX/SIMETH 30 ML UNIT-DOSE CUP PO PRN (12:33)
[2022-08-28] MEDS ORDERED: POLYETHYLENE GLYCOL (HEALTHYLAX) 3350 17 GM PACKET PO PRN (12:33)
[2022-08-28] MEDS ORDERED: BENZOCAINE/MENTHOL (CHLORASEPTIC ) LOZENGE MM PRN (12:33)
[2022-08-28] MEDS ORDERED: DICYCLOMINE HCL 10 MG CAPSULE PO PRN (12:33)
[2022-08-28] MEDS: PRENATAL VITAMINS W/ FOLIC ACID TABLET (FP) PO SCH (12:45)
[2022-08-28] MEDS: NICOTINE 7 MG/24 HOURS TOPICAL PATCH TD SCH (14:01)
[2022-08-28 14:39] LABS: HEMATOCRIT 36.5 % (35.4-49); HEMOGLOBIN 12.1 GM/dL (11.7-16.9); MEAN CELL VOLUME 90.9 fl (80-96); MEAN PLT VOLUME 8.6 fl (7.5-11.1); PLATELET COUNT 267 10^3/uL (134-434); RBC 4.01 M/mm3 (4.00-5.60); RDW 13.8 % (11.9-15.9); WHITE BLOOD COUNT 6.2 K/mm3 (4.0-10.0)
[2022-08-28 14:58] LABS: BLOOD UREA NITROGEN 17.7 mg/dL (7-18)
[2022-08-28 14:59] LABS: ALBUMIN 3.4 g/dl (3.4-5.0)
[2022-08-28 15:01] LABS: BILIRUBIN,TOTAL 0.4 mg/dL (0.2-1)
[2022-08-28 15:02] LABS: CREATININE 1.3 mg/dL (0.55-1.3)
[2022-08-28 15:04] LABS: CALCIUM 8.9 mg/dL (8.5-10.1)
[2022-08-28] MEDS: chlordiazePOXIDE HCL 25 MG CAPSULE PO SCH ×2 (18:25→23:11)
[2022-08-28] MEDS: THIAMINE HCL 100 MG TABLET (FP) PO SCH (23:13)
[2022-08-28] MEDS: MELATONIN 5 MG TABLETS PO SCH (23:13)
[2022-08-29] MEDS: chlordiazePOXIDE HCL 25 MG CAPSULE PO SCH ×4 (06:26→22:50)
[2022-08-29] MEDS: PRENATAL VITAMINS W/ FOLIC ACID TABLET (FP) PO SCH (10:58)
[2022-08-29] MEDS: NICOTINE 7 MG/24 HOURS TOPICAL PATCH TD SCH (10:58)
[2022-08-29] MEDS: MELATONIN 5 MG TABLETS PO SCH (22:50)
[2022-08-29] MEDS: THIAMINE HCL 100 MG TABLET (FP) PO SCH (22:50)
[2022-08-30] MEDS ORDERED: chlordiazePOXIDE HCL 25 MG CAPSULE PO SCH (05:00)
[2022-08-30 09:45] VITALS: RESP 18
[2022-08-30] MEDS ORDERED: methaDONE HCL 10 MG TABLET (FOR DETOX USE ONLY) PO ONE (10:00)
[2022-08-30] MEDS: PRENATAL VITAMINS W/ FOLIC ACID TABLET (FP) PO SCH (10:43)
[2022-08-30] MEDS: NICOTINE 7 MG/24 HOURS TOPICAL PATCH TD SCH (10:43)
[2022-08-30] MEDS: THIAMINE HCL 100 MG TABLET (FP) PO SCH (22:40)
[2022-08-30] MEDS: MELATONIN 5 MG TABLETS PO SCH (22:40)
[2022-08-31] MEDS ORDERED: chlordiazePOXIDE HCL 10 MG CAPSULE PO PRN
[2022-08-31] MEDS ORDERED: chlordiazePOXIDE HCL 10 MG CAPSULE PO SCH (05:00)
[2022-08-31 10:34] VITALS: BP 138/84; PULSE 97; TEMP 96.9
[2022-08-31] MEDS: NICOTINE 7 MG/24 HOURS TOPICAL PATCH TD SCH (10:51)
[2022-08-31] MEDS: PRENATAL VITAMINS W/ FOLIC ACID TABLET (FP) PO SCH (10:51)
[2022-09-01] MEDS ORDERED: chlordiazePOXIDE HCL 10 MG CAPSULE PO SCH (05:00)
[2022-09-01] MEDS ORDERED: methaDONE HCL 10 MG TABLET (FOR DETOX USE ONLY) PO ONE (10:00)
[2022-09-02] MEDS ORDERED: chlordiazePOXIDE HCL 10 MG CAPSULE PO ONE (05:00)
== END 2022-08-31 10:30 | disposition home or self-care (01) | DRG 773 ==
LOC: YASAS 11:07 → Y6N 13:20
PROVIDERS: ADMIT Allergy & Immunology; ATTEND Surgery
PROC: HZ2ZZZZ Detoxification Services for Substance Abuse Treatment (ICD-10-PCS; principal; 2022-08-28)
DX: F11.23 Opioid dependence with withdrawal (principal); F10.230 Alcohol dependence with withdrawal, uncomplicated; F14.20 Cocaine dependence, uncomplicated; F17.210 Nicotine dependence, cigarettes, uncomplicated; Z59.02 Unsheltered homelessness
CPT/HCPCS: 36415; 80053; 82140; 85027; 86780; C9803-CS; U0003; U0005